=== PATIENT | male | born 1955 | race African-American/Black ===

== ENCOUNTER 2019-03-15 18:22 | Emergency (ER) | payer MEDICAID ==
[~2019-03-15] VITALS: Ht 162.6 cm; Wt 68.0 kg
[~2019-03-15 18:22] MED LIST: ABILIFY2 MG ORAL; GLIPIZIDE10 MG PO
--- NOTE | 2019-03-15 18:22 | NUR ---
ED Nurse Note: Patient brought in by ambulance [address], per EMS, patient called 911 and stated that he wants to hurt himself. at this time, patient denies any plan.
--- NOTE | 2019-03-15 18:25 | NUR ---
ED Nurse Note: belongings placed in locker #2
--- NOTE | 2019-03-15 19:15 | NUR ---
ED Nurse Note: patient is requesting for food.
--- NOTE | 2019-03-15 19:17 | NUR ---
ED Nurse Note: blood sent to lab. unable to obtain IV site at this time, endorsed to MATEUS BENJAMIN.
--- NOTE | 2019-03-15 19:22 | NUR ---
HAND-OFF: Report given to MATEUS BENJAMIN. endorsed that patient state "I want to hurt myself" but also states "I dont have any plan." CRISPIN BARBER at bedside assessing patient.
--- NOTE | 2019-03-15 19:23 | NUR ---
ED Nurse Note: food provided by Kelli BENJAMIN
--- NOTE | 2019-03-15 19:40 | Emergency Room Report ---
History of Present Illness General Chief Complaint: Behavioral Complaint Source: EMS (Ollie Caldwell) Present Illness HPI 62-year-old male patient presents the ER brought in by ambulance labial complaint. Denies recent injury or accident. Denies headache. Denies syncope. Denies fever vomiting chills. Denies chest pain or shortness of breath. Reports that he normally takes Abilify, states has not taken for the past 2 weeks. Denies other aggravating or relieving factors. Reports history of schizophrenic bipolar disease. Patient is not on a 5150 home. (Ollie Caldwell) Allergies: Coded Allergies: No Known Allergies (Unverified , 03/15/19) Patient History Past Medical History: see triage record Reviewed Nursing Documentation: PMH: Agreed; PSxH: Agreed (Ollie Caldwell) Nursing Documentation-PMH Past Medical History: No History, Except For Hx Diabetes: Yes (Ollie Caldwell) Review of Systems All Other Systems: negative except mentioned in HPI (Ollie Caldwell) Physical Exam Vital Signs Date Time Temp Pulse Resp B/P (MAP) Pulse Ox O2 Delivery O2 Flow Rate FiO2 03/15/19 18:08 98.6 76 14 146/ 99 Room Air Sp02 EP Interpretation: reviewed, normal General Appearance: well appearing, no apparent distress, alert, GCS 15, non- toxic Head: normocephalic, atraumatic Eyes: bilateral eye normal inspection, bilateral eye PERRL ENT: hearing grossly normal, normal pharynx, no angioedema, normal voice, uvula midline, moist mucus membranes Neck: full range of motion Respiratory: lungs clear, normal breath sounds, no rhonchi, no respiratory distress, no accessory muscle use, no wheezing, speaking full sentences Cardiovascular #1: regular rate, rhythm, no edema Gastrointestinal: non tender, soft, no mass, non-distended, no guarding, no rebound Genitourinary: no CVA tenderness Musculoskeletal: back normal, digits/nails normal, gait/station normal, normal range of motion, non-tender Neurologic: alert, oriented x3, responsive, motor strength/tone normal, sensory intact Psychiatric: mood/affect normal Lymphatic: no adenopathy (Ollie Caldwell) Medical Decision Making PA Attestation Dr. Morales is my supervising Physician whom patient management has been discussed with. (Ollie Caldwell) Diagnostic Impression: Primary Impression: Behavioral disorder Additional Impression: Cocaine abuse ER Course Pt. presents to the ED c/o Ddx considered but are not limited to anxiety, depression, drug use, alcohol use , behavioral disorder. Vital signs: are WNL, pt. is afebrile Ordered labs, urine drug screen, serum alcohol. ER COURSE: Patient resting comfortably in bed, eating and drinking without difficulty. CBC and CMP unremarkable, mild elevation in alk phos Serum alcohol <3, acetaminophen and salicylate levels within normal limits Urine drug screen positive for cocaine Vitals stable. Patient resting comfortably. Patient is medically cleared. We will work to transfer patient to psychiatric facility on voluntary hold. Patient care transferred to Dr. Valdes. - Please note that this Emergency Department Report was dictated using [employer] technology software, occasionally this can lead to erroneous entry secondary to interpretation by the dictation equipment. Labs Test 03/15/19 19:15 White Blood Count 6.5 K/UL (4.8-10.8) Red Blood Count 4.79 M/UL (4.70-6.10) Hemoglobin 13.3 G/DL (14.2-18.0) Hematocrit 41.4 % (42.0-52.0) Mean Corpuscular Volume 86 FL (80-99) Mean Corpuscular Hemoglobin 27.8 PG (27.0-31.0) Mean Corpuscular Hemoglobin Concent 32.2 G/DL (32.0-36.0) Red Cell Distribution Width 11.4 % (11.6-14.8) Platelet Count 158 K/UL (150-450) Mean Platelet Volume 6.6 FL (6.5-10.1) Neutrophils (%) (Auto) 60.7 % (45.0-75.0) Lymphocytes (%) (Auto) 27.0 % (20.0-45.0) Monocytes (%) (Auto) 8.3 % (1.0-10.0) Eosinophils (%) (Auto) 2.7 % (0.0-3.0) Basophils (%) (Auto) 1.3 % (0.0-2.0) Sodium Level 140 MMOL/L (136-145) Potassium Level 4.1 MMOL/L (3.5-5.1) Chloride Level 106 MMOL/L (98-107) Carbon Dioxide Level 27 MMOL/L (21-32) Anion Gap 7 mmol/L (5-15) Blood Urea Nitrogen 20 mg/dL (7-18) Creatinine 0.9 MG/DL (0.55-1.30) Estimat Glomerular Filtration Rate > 60 mL/min (>60) Glucose Level 102 MG/DL (74-106) Calcium Level 9.4 MG/DL (8.5-10.1) Total Bilirubin 0.2 MG/DL (0.2-1.0) Aspartate Amino Transf (AST/SGOT) 17 U/L (15-37) Alanine Aminotransferase (ALT/SGPT) 14 U/L (12-78) Alkaline Phosphatase 141 U/L (46-116) Total Protein 7.4 G/DL (6.4-8.2) Albumin 3.5 G/DL (3.4-5.0) Globulin 3.9 g/dL Albumin/Globulin Ratio 0.9 (1.0-2.7) Salicylates Level 1.0 ug/mL (2.8-20) Urine Opiates Screen Negative (NEGATIVE) Acetaminophen Level < 2 MCG/ML (10-30) Urine Barbiturates Screen Negative (NEGATIVE) Phencyclidine (PCP) Screen Negative (NEGATIVE) Urine Amphetamines Screen Negative (NEGATIVE) Urine Benzodiazepines Screen Negative (NEGATIVE) Urine Cocaine Screen Positive (NEGATIVE) Urine Marijuana (THC) Screen Negative (NEGATIVE) Serum Alcohol < 3 mg/dL (Ollie Caldwell P.A.) ER Course Patient signed out to me. He is supposed to be on Abilify but is been off of it for over a month. He was at a psych facility 2 months ago. He felt that he can take care of himself. He is to go voluntarily to a psych facility. Patient is medically clear. Will transfer to psych facility. (Rome Valdes MD) Last Vital Signs Date Time Temp Pulse Resp B/P (MAP) Pulse Ox O2 Delivery O2 Flow Rate FiO2 03/15/19 19:19 76 14 Room Air 03/15/19 18:08 98.6 146/ 99 (Ollie Caldwell P.A.) Status: improved (Rome Valdes MD) Disposition: XFER TO PSYCH HOSP/UNIT Condition: Improved Referrals: NOT CHOSEN IPA/,REFERRING (PCP) Ollie Caldwell Mar 15, 2019 19:40 Rome Valdes MD Mar 16, 2019 04:43
[2019-03-15 19:46] LABS: BASOPHILS % (AUTO) 1.3 % (0.0-2.0); EOSINOPHILS % (AUTO) 2.7 % (0.0-3.0); HEMATOCRIT 41.4 % (42.0-52.0); HEMOGLOBIN 13.3 G/DL (14.2-18.0); MEAN CORPUSCULAR VOLUME 86 FL (80-99); MONOCYTES % (AUTO) 8.3 % (1.0-10.0); NEUTROPHILS % (AUTO) 60.7 % (45.0-75.0); PLATELET COUNT 158 K/UL (150-450); RED BLOOD COUNT 4.79 M/UL (4.70-6.10); RED CELL DISTRIBUTION WIDTH 11.4 % (11.6-14.8); WHITE BLOOD COUNT 6.5 K/UL (4.8-10.8)
[2019-03-15 20:01] LABS: ANION GAP 7 mmol/L (5-15); BLOOD UREA NITROGEN 20 mg/dL (7-18); CALCIUM 9.4 MG/DL (8.5-10.1); CARBON DIOXIDE 27 MMOL/L (21-32); CHLORIDE 106 MMOL/L (98-107); CREATININE 0.9 MG/DL (0.55-1.30); POTASSIUM 4.1 MMOL/L (3.5-5.1); SODIUM 140 MMOL/L (136-145)
[2019-03-15 20:05] LABS: ALANINE AMINOTRANSFERASE 14 U/L (12-78); ALBUMIN 3.5 G/DL (3.4-5.0); ALBUMIN/GLOBULIN RATIO 0.9 (1.0-2.7); ALKALINE PHOSPHATASE 141 U/L (46-116); ASPARTATE AMINO TRANSFERASE 17 U/L (15-37); BILIRUBIN,TOTAL 0.2 MG/DL (0.2-1.0)
[2019-03-15 23:00] VITALS: BP 160/63
--- NOTE | 2019-03-15 23:00 | NUR ---
ED Nurse Note: Pt offered sandwhich and juice. Pt now resting in bed with eyes closed, non-labored breathing, will continue to monitor
[2019-03-16 01:00] VITALS: BP 148/65
[2019-03-16 01:47] VITALS: BP 120/86
--- NOTE | 2019-03-16 03:09 | NUR ---
ED Nurse Note: Pt side laying, no signs of distress, eyes closed. No further orders at this time. Will continue to monitor
[2019-03-16 05:10] VITALS: BP 120/86
--- NOTE | 2019-03-16 05:10 | NUR ---
ER DISCHARGE NOTE: Patient is cleared to be discharged per ERMD, pt is aox4, on room air, with stable vital signs. pt was given dc and prescription instructions, pt was able to verbalize understanding, pt id band removed. pt transferred to [place] via ambulance. pt took all belongings.
== END 2019-03-16 05:10 ==
LOC: EDBD 18:22 → EMR 19:00 → EDBD 19:00 → EMR 03-16 05:10
DX: F91.9 Conduct disorder, unspecified (principal); F14.10 Cocaine abuse, uncomplicated; E11.9 Type 2 diabetes mellitus without complications; F20.9 Schizophrenia, unspecified; F31.9 Bipolar disorder, unspecified
CPT/HCPCS: 36415; 80053; 80196; 80307; 80329; 85025; Z7502; 99285